=== PATIENT | female | born 1965 | race African-American/Black ===

== ENCOUNTER 2020-03-19 19:35 | Emergency (ER) | payer SELFPAY ==
[~2020-03-19] VITALS: Ht 162.6 cm; Wt 118.0 kg
[2020-03-19] MEDS ORDERED: CLINDAMYCIN 600 MG in DEXTROSE 5% WATER 50 ML IV ONE (20:30)
[2020-03-19] MEDS ORDERED: SODIUM CHLORIDE 0.9% 1,000 ML IV ONE (20:30)
[2020-03-19] MEDS ORDERED: CLINDAMYCIN 600MG PREMIX 50 ML IV SCH (20:45)
[2020-03-19 21:36] LABS: BASOPHILS % 1.4 % (0.0-2.0); EOSINOPHILS % 1.4 % (0.0-5.0); HEMATOCRIT. 43.1 % (36.0-48.0); HEMOGLOBIN. 14.7 g/dL (12.0-16.0); LYMPHOCYTES % 23.4 % (20.0-50.0); MEAN CORPUSCULAR HEMOGLOBIN 27.6 pg (28.0-32.0); MEAN CORPUSCULAR VOLUME 80.9 fL (81.0-99.0); MEAN PLATELET VOLUME 10.5 fl (7.4-10.4); MONOCYTES % 5.7 % (2.0-8.0); NEUTROPHILS % 68.1 % (40.0-76.0); PLATELET 272 x1000/uL (130-400); RED BLOOD CELL COUNT 5.33 mill/uL (4.2-5.4); RED CELL DISTRIBUTION WIDTH 14.1 % (11.6-14.6)
[2020-03-19 21:48] LABS: CHLORIDE 102 mEq/L (98-107)
[2020-03-19] MEDS ORDERED: KETOROLAC 30MG/ML VIAL IV ONE (22:00)
[2020-03-19] MEDS ORDERED: DEXAMETHASONE 4MG/ML 1ML VIAL IV ONE (23:45)
[2020-03-19] MEDS ORDERED: PEN G BENZ/PEN G PROCAINE CR 1.2 MMU/2 ML IM ONE (23:45)
[2020-03-20] MEDS ORDERED: IOHEXOL-300 100 ML BOTTLE ONE (00:01)
[2020-03-20 00:53] VITALS: BP 145/79
== END 2020-03-20 00:57 | disposition home or self-care (01) ==
LOC: ER 19:35
DX: J36 Peritonsillar abscess (principal)
CPT/HCPCS: 36415; 70491; 80053; 85025; 87040; 96365; 96372; 96375; 99285; J0558; J1100; J1885; J3490; J7030; Q9967; J7060